=== PATIENT | female | born 2000 | race Hispanic/Latino ===

== ENCOUNTER 2019-07-21 17:26 | Inpatient (IN) | payer MEDICAID ==
[~2019-07-21] VITALS: Ht 154.9 cm; Wt 70.3 kg
[2019-07-21] MEDS ORDERED: LACTATED RINGERS 1000ML 1,000 ML IV PRN (18:03)
[2019-07-21] MEDS: AMPICILLIN 1GM+NS 50ML 50 ML IV SCH ×2 (18:15→22:20)
[2019-07-21] MEDS ORDERED: AMPICILLIN 2GM+NS 100ML 100 ML IV SCH (18:15)
[2019-07-21 18:29] LABS: HEMATOCRIT 39.7 % (36-48); MEAN CORPUSCULAR HEMOGLOBIN 28.3 pg (27.0-33.0); MEAN CORPUSCULAR VOLUME 88.6 fL (80-100); PLATELET COUNT (AUTO) 251 K/uL (130-400); RED BLOOD CELL COUNT(AUTO) 4.48 MIL/uL (4.00-5.50); RED CELL DISTRIBUTION WIDTH 20.1 % (11.0-15.5); WHITE BLOOD COUNT (AUTO) 10.4 K/uL (4.8-10.8)
[2019-07-21] MEDS ORDERED: NALOXONE HCL 0.4 MG/1 ML ML IV PRN (18:30)
[2019-07-21] MEDS ORDERED: LACTATED RINGERS 500 ML 500 ML IV PRN (18:30)
[2019-07-21] MEDS ORDERED: MEPERIDINE-PF 50 MG/ML SYG IVP PRN (18:30)
[2019-07-21] MEDS ORDERED: PROMETHAZINE HCL 25 MG/ML 1ML AMPULE IM PRN (18:30)
[2019-07-21] MEDS ORDERED: ROPIVACAINE 0.2% 100ML VIAL 100 ML EP SCH (18:30)
[2019-07-21] MEDS ORDERED: EPHEDRINE SULFATE 50 MG/ML AMPULE IVP PRN (18:30)
[2019-07-21 18:33] VITALS: BP 122/62
[2019-07-21 19:37] LABS: RAPID PLASMA REAGIN NONREACTIVE (NONREACTIVE)
[2019-07-21 21:03] LABS: APPEARANCE,URINE Clear (CLEAR); BILIRUBIN,URINE Negative (NEGATIVE); COLOR,URINE Yellow (YELLOW); GLUCOSE, URINE (UA) Negative (NEGATIVE); KETONES,URINE 15 mg/dL (NEGATIVE); LEUKOCYTE ESTERASE ,URINE Moderate (NEGATIVE); NITRATE,URINE Negative (NEGATIVE); OCCULT BLOOD,URINE Nonhemolyzed Trace (NEGATIVE); PH,URINE 6.5 (5.0-8.0); PROTEIN,URINE POS 1+ mg/dL (NEGATIVE)
[2019-07-21 21:09] LABS: AMPHET/METH SCREEN,URINE NEGATIVE (NEGATIVE); BARBITURATE SCREEN, URINE NEGATIVE (NEGATIVE); BENZODIAZEPINES SCREEN,URINE NEGATIVE (NEGATIVE); CANNABINOID SCREEN,URINE NEGATIVE (NEGATIVE); COCAINE SCREEN,URINE NEGATIVE (NEGATIVE); OPIATE SCREEN,URINE NEGATIVE (NEGATIVE); PHENCYCLIDINE SCREEN,URINE NEGATIVE (NEGATIVE)
[2019-07-21 21:13] LABS: BACTERIA,URINE Few /HPF (None Seen); SQUAMOUS EPITHELIAL CELL,UR Few /HPF (0-2); TRANSITIONAL EPI CELLS,URINE Few /HPF (None Seen)
[2019-07-21 21:14] LABS: MUCUS,URINE Rare LPF (None Seen)
[2019-07-21] MEDS ORDERED: ACETAMINOPHEN EXTRA STRENGTH 500 MG TABLET ONE (22:18)
[2019-07-21] MEDS ORDERED: ACETAMINOPHEN EXTRA STRENGTH 500 MG TABLET PO SCH (22:30)
[2019-07-22] MEDS: AMPICILLIN 1GM+NS 50ML 50 ML IV SCH ×2 (02:18→05:59)
[2019-07-22] MEDS ORDERED: OXYTOCIN-LR 20 UNITS/1000 ML 1,000 ML IV ONE ×2 (03:43→15:56)
[2019-07-22] MEDS ORDERED: OXYTOCIN 10 USP UNITS/ML 20 UNIT in LACTATED RINGERS 1000ML 1,000 ML IV SCH (04:00)
[2019-07-22] MEDS ORDERED: FENTANYL CITRATE PF 50 MCG/1 ML 2ML VIAL ONE (10:09)
[2019-07-22] MEDS ORDERED: MISOPROSTOL 200 MCG TABLET ONE (14:20)
[2019-07-22] MEDS ORDERED: METHYLERGONOVINE MALEATE 0.2 MG/1 ML ML ONE (14:21)
[2019-07-22] MEDS ORDERED: LANOLIN 30GM OINTMENT TP PRN (14:30)
[2019-07-22] MEDS ORDERED: DIPH,PERTUSS(ACELL),TET VAC/PF 0.5 ML VIAL IM PRN (14:30)
[2019-07-22] MEDS ORDERED: BENZOCAINE/LANOLIN/ALOE VERA 60 ML AEROSOL TP PRN (14:30)
[2019-07-22] MEDS ORDERED: IBUPROFEN 600 MG TABLET PO PRN (14:30)
[2019-07-22] MEDS ORDERED: MEASLES/MUMPS/RUBELLA VACCINE, LIVE 0.5 ML/VIAL SQ PRN (14:30)
[2019-07-22] MEDS ORDERED: ACETAMINOPHEN-CODEINE 300/30MG TAB PO PRN (14:30)
[2019-07-22] MEDS ORDERED: WITCH HAZEL 1 PAD TP PRN (14:30)
[2019-07-22] MEDS ORDERED: GENTAMICIN 80 MG/NS 100 ML PB 100 ML IV SCH (16:15)
[2019-07-22] MEDS: ACETAMINOPHEN 325 MG TAB PO PRN (16:22)
[2019-07-22 16:43] VITALS: BP 124/78
[2019-07-22] MEDS ORDERED: GENTAMICIN 120 MG IN 100ML NS 100 ML IV SCH (16:45)
[2019-07-22] MEDS: CLINDAMYCIN 900 MG/D5% WATER 50 ML IV SCH (16:52)
[2019-07-22] MEDS: IBUPROFEN 800 MG TAB PO SCH (16:53)
[2019-07-22] MEDS ORDERED: PREN-154 PO (17:03)
[2019-07-22] MEDS ORDERED: FERR-82 PO (17:03)
[2019-07-22 19:18] VITALS: BP 114/67
[2019-07-22] MEDS: DOCUSATE SODIUM 100 MG CAP PO SCH (21:07)
[2019-07-22 23:54] VITALS: BP 119/70
[2019-07-23] MEDS: CLINDAMYCIN 900 MG/D5% WATER 50 ML IV SCH ×3 (00:32→17:05)
[2019-07-23] MEDS: IBUPROFEN 800 MG TAB PO SCH ×3 (00:32→16:10)
[2019-07-23] MEDS: GENTAMICIN 80 MG/NS 100 ML PB 100 ML IV SCH ×3 (01:59→16:11)
[2019-07-23 02:47] VITALS: BP 109/65
[2019-07-23 06:26] LABS: HEMATOCRIT 33.2 % (36-48); MEAN CORPUSCULAR HEMOGLOBIN 28.2 pg (27.0-33.0); MEAN CORPUSCULAR HGB CONC 31.6 g/dL (32.0-36.0); RED BLOOD CELL COUNT(AUTO) 3.73 MIL/uL (4.00-5.50); RED CELL DISTRIBUTION WIDTH 20.2 % (11.0-15.5); WHITE BLOOD COUNT (AUTO) 10.1 K/uL (4.8-10.8)
[2019-07-23 07:16] VITALS: BP 113/81
[2019-07-23] MEDS: DOCUSATE SODIUM 100 MG CAP PO SCH ×2 (08:27→21:08)
[2019-07-23 12:05] VITALS: BP 121/67
[2019-07-23 16:28] VITALS: BP 107/65
[2019-07-23 20:07] VITALS: BP 128/74
[2019-07-23] MEDS: ACETAMINOPHEN 325 MG TAB PO PRN (20:07)
[2019-07-23 23:47] VITALS: BP 125/76
[2019-07-24] MEDS: CLINDAMYCIN 900 MG/D5% WATER 50 ML IV SCH ×3 (00:41→14:59)
[2019-07-24] MEDS: IBUPROFEN 800 MG TAB PO SCH ×3 (00:41→14:59)
[2019-07-24] MEDS: GENTAMICIN 80 MG/NS 100 ML PB 100 ML IV SCH ×3 (01:21→16:01)
[2019-07-24 03:08] LABS: HEPATITIS Bs ANTIGEN SCREEN P Negative (Negative)
[2019-07-24 03:45] VITALS: BP 126/76
[2019-07-24 07:25] VITALS: BP 139/83
[2019-07-24] MEDS: DOCUSATE SODIUM 100 MG CAP PO SCH (08:56)
--- NOTE | 2019-07-24 10:31 | NUR ---
HX OF THC at 36weeks Sw contacted by nurseMD reported pt was positive for THC at 36wks. OB office records on chart. Graham met with pt and her BF Berto aPrnell [phone] 03-04-1996. This is first child for couple son, Isiah Parnell. Couple state they have basic items for NB, including car seat and [facility] will follow baby after dc. 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 Will apply for WIC after dc. Pt lives with her sister Olivia Lemon and sister's 3 kids 3,5,7 in an apt. FOB lives on his own. Pt denies that she has EVER used THC and states she was not informed by OB that she tested positive on 07/17/19. Pt was negative at delivery, baby's meconium was tested and results are pending in 5 to 7 days. Sw educated pt and FOB on CPS reporting if baby tests positive for THC with meconium. Pt voiced understanding. SW to follow and make CPS report is test results are positive Pt denies and hx of abuse, substance abuse, mental health, CPS or legal issues.
[2019-07-24] MEDS ORDERED: IBUP-2077 PO (12:21)
[2019-07-24] MEDS ORDERED: DOCU-116 PO (12:22)
--- NOTE | 2019-07-24 12:40 | NUR ---
Verbal and written discharge instructions given, informed of the follow up appointment, prescription given. all questions answered. informed to call the doctor for future concerns. pt voiced understanding to all things discussed. Addendum: 07/24/19 at 1257 by ROLF BURRELL RN Amended: Links added.
[2019-07-24 16:36] VITALS: BP 116/87
--- NOTE | 2019-07-24 17:45 | NUR ---
pt is dismissed in stable condition, brought to private car via wheelchair by Kacie agosto Addendum: 07/24/19 at 1750 by ROLF BURRELL RN Amended: Links added.
== END 2019-07-24 17:45 | disposition home or self-care (01) | DRG 560 ==
LOC: EDH 17:26 → LDH 17:27 → OBSVTOIN 17:27 → WSH 07-22 16:40
PROVIDERS: ADMIT Obstetrics & Gynecology; ATTEND Obstetrics & Gynecology
PROC: 10E0XZZ Delivery of Products of Conception, External Approach (ICD-10-PCS; principal; 2019-07-22)
PROC: 00HU33Z Insertion of Infusion Device into Spinal Canal, Percutaneous Approach (ICD-10-PCS; 2019-07-22)
PROC: 3E0R3BZ Introduction of Anesthetic Agent into Spinal Canal, Percutaneous Approach (ICD-10-PCS; 2019-07-22)
PROC: 3E0234Z Introduction of Serum, Toxoid and Vaccine into Muscle, Percutaneous Approach (ICD-10-PCS; 2019-07-23)
DX: O42.913 Preterm premature rupture of membranes, unspecified as to length of time between rupture and onset of labor, third trimester (principal); Z37.0 Single live birth; K21.9 Gastro-esophageal reflux disease without esophagitis; O66.0 Obstructed labor due to shoulder dystocia; O62.2 Other uterine inertia; Z3A.36 36 weeks gestation of pregnancy; Z23 Encounter for immunization; O99.62 Diseases of the digestive system complicating childbirth; O69.1XX0 Labor and delivery complicated by cord around neck, with compression, not applicable or unspecified
CPT/HCPCS: 36415; 80170; 80305; 81001; 85027; 86592; 86701; 86850; 86900; 86901; 87088; 87340; 87390; 90715; A4351; G0378; J0290; J1580; J2175; J2210; J2550; J2590; J2795; J3010; J3490; J7120